=== PATIENT | female | born 1970 ===

== ENCOUNTER 2016-12-26 20:26 | Emergency (ER) | payer MEDICAID ==
[2016-12-26 20:26] VITALS: BMI 31.6
[2016-12-26 20:40] VITALS: O2SAT 100
[2016-12-26] MEDS ORDERED: Sodium Chloride 0.9% 1,000 ML IV ONE (20:54)
--- NOTE | 2016-12-26 21:09 | C.PDOC ---
History Of Present Illness 46 year old female presents to the ED with complaints of abdominal bloating for the past 4 days. Patient states she is s/p laparoscopic cholecystectomy and umbilical hernia repair on November 2016. Denies abdominal pain, nausea, vomiting, or any other complaints. Time Seen by Provider: 12/26/16 20:48 Chief Complaint (Nursing): Abdominal Pain History Per: Patient History/Exam Limitations: no limitations Onset/Duration Of Symptoms: Days Current Symptoms Are (Timing): Still Present Severity: Mild Radiation Of Pain To:: None Associated Symptoms: denies: Nausea, Vomiting Abnormal Vaginal Bleeding: No Past Medical History Reviewed: Historical Data, Nursing Documentation, Vital Signs Vital Signs: Last Vital Signs Temp 98 F 12/26/16 20:36 Pulse 77 12/26/16 20:36 Resp 20 12/26/16 20:36 BP 109/72 12/26/16 20:36 Pulse Ox 100 12/26/16 21:10 - Medical History PMH: Gastritis, Gall Bladder Disease Surgical History: Endoscopy Family History: States: Unknown Family Hx - Social History Hx Tobacco Use: No Hx Alcohol Use: No Hx Substance Use: No - Immunization History Hx Tetanus Toxoid Vaccination: No Hx Influenza Vaccination: No Hx Pneumococcal Vaccination: No Review Of Systems Except As Marked, All Systems Reviewed And Found Negative. Constitutional: Negative for: Fever, Chills Gastrointestinal: Positive for: Other (+Abdominal bloating). Negative for: Nausea, Vomiting, Abdominal Pain Physical Exam - Physical Exam Appears: Non-toxic, No Acute Distress Skin: Normal Color, Warm, Dry Head: Atraumatic, Normacephalic Eye(s): bilateral: Normal Inspection Oral Mucosa: Moist Chest: Symmetrical, No Deformity Cardiovascular: Rhythm Regular, No Murmur Respiratory: Normal Breath Sounds, No Accessory Muscle Use, No Rales, No Rhonchi , No Wheezing Gastrointestinal/Abdominal: Soft, No Tenderness, Distention (+Mild distention), No Guarding, No Rebound, Other (+Obese abdomen) Extremity: Normal ROM Neurological/Psych: Oriented x3, Normal Speech, Normal Cognition ED Course And Treatment - Laboratory Results Result Diagrams: 12/26/16 21:10 12/26/16 21:10 Lab Interpretation: Normal (ua neg.) Urine POC: Negative O2 Sat by Pulse Oximetry: 100 (Room air) Pulse Ox Interpretation: Normal - Radiology CXR: Interpreted by Me CXR Interpretation: Yes: No Acute Disease - Other Rad abd x 2 X-Ray: Interpreted by Me (+FOS) Progress Note: Obstructive series, Blood work, and Urinalysis ordered and reviewed. Patient treated with Toradol and IV fluids. Reevaluation Time: 21:49 Reassessment Condition: Improved Medical Decision Making Medical Decision Making: constipation, normal labs no FA (s/p lap karyn 1 mo ago) Disposition Doctor Will See Patient In The: Office Counseled Patient/Family Regarding: Studies Performed, Diagnosis - Disposition Disposition: HOME/ ROUTINE Disposition Time: 21:49 Condition: GOOD - Clinical Impression Clinical Impression: Abdominal bloating - Scribe Statement The provider has reviewed the documentation as recorded by the Scribe Janes Weiss. Provider Attestation: All medical record entries made by the Scribe were at my direction and personally dictated by me. I have reviewed the chart and agree that the record accurately reflects my personal performance of the history, physical exam, medical decision making, and the department course for this patient. I have also personally directed, reviewed, and agree with the discharge instructions and disposition.
[2016-12-26] MEDS ORDERED: Sodium Chloride 0.9% 1,000 ML ONE (21:10)
[2016-12-26 21:15] LABS: RBC URINE 2 /hpf (0-3); URINE BACTERIA RARE (<OCC); URINE BILIRUBIN NEGATIVE (NEGATIVE); URINE BLOOD NEGATIVE (NEGATIVE); URINE COLOR Yellow (YELLOW); URINE GLUCOSE (UA) NORMAL (Normal); URINE KETONE NEGATIVE (NEGATIVE); URINE LEUKOCYTE ESTERASE 2+ Leu/uL (Negative); URINE PROTEIN NEGATIVE (NEGATIVE); URINE UROBILINOGEN NORMAL mg/dL (0.2-1.0); WBC URINE 184 /hpf (0-5)
[2016-12-26 21:21] LABS: BASO % 0.9 % (0.0-2.0); EOS # 0.2 K/uL (0.0-0.7); EOS % 4.1 % (0.0-4.0); HEMATOCRIT 36.3 % (34.0-47.0); LYMPH # 2.7 K/uL (1.0-4.3); LYMPH % 49.2 % (20.0-40.0); MEAN CELL VOLUME 89.5 fL (81.0-99.0); MEAN CORPUSCULAR HEMOGLOBIN 30.2 pg (27.0-31.0); MEAN CORPUSCULAR HGB CONC 33.8 g/dL (33.0-37.0); MEAN PLATELET VOLUME 8.5 fL (7.2-11.7); MONO # 0.4 K/uL (0.0-0.8); MONO % 7.4 % (0.0-10.0); NRBC % 0.2 % (0.0-2.0); RED CELL DISTRIBUTION WIDTH 13.3 % (11.5-14.5); WHITE BLOOD COUNT 5.4 K/uL (4.8-10.8)
[2016-12-26 21:24] LABS: CHLORIDE 96 mmol/L (98-107); POTASSIUM 3.8 mmol/L (3.6-5.2); SODIUM 140 mmol/L (132-148)
[2016-12-26 21:26] LABS: GFR AFRICAN-AMERICAN > 60
[2016-12-26 21:27] LABS: ALB/GLOB RATIO 1.4 (1.0-2.1); ALKALINE PHOSPHATASE 50 U/L (38-126); ALT/SGPT 17 U/L (9-52); AST/SGOT 23 U/L (14-36); BILIRUBIN,TOTAL 0.2 mg/dL (0.2-1.3); BLOOD UREA NITROGEN 16 mg/dL (7-17); CALCIUM 8.8 mg/dl (8.6-10.4); CARBON DIOXIDE 28 mmol/L (22-30); GLUCOSE,RANDOM 103 mg/dL (65-105); TOTAL PROTEIN 7.1 g/dL (6.3-8.3)
[2016-12-26 21:58] VITALS: BP 119/78; PULSE 67; RESP 18; TEMP 97.8
--- NOTE | 2016-12-27 11:32 | RAD ---
PROCEDURE: Radiographs of the chest and abdomen (obstructive series) HISTORY: abd pain COMPARISON: CT abdomen and pelvis without contrast performed 02/02/16 TECHNIQUE: AP radiograph of the chest, with upright and supine radiographs of the abdomen. FINDINGS: CHEST: The cardiomediastinal silhouette appears within normal limits of size. No focal consolidation, significant pleural effusion, or definite pneumothorax identified.Please note that chest x-ray has limited sensitivity for the detection of pulmonary masses. ABDOMEN AND PELVIS: Right upper quadrant surgical clips compatible with cholecystectomy. Nonobstructive bowel gas pattern. Moderate constipation. 1.4 cm left pelvic calcification, likely calcified uterine fibroid. Pelvic calcifications, likely phleboliths. 8 mm sclerotic focus within the right sacrum, possibly bone island. Degenerative changes of the spine and pelvis. IMPRESSION: Moderate constipation. Probable calcified uterine fibroid. Cholecystectomy clips.
== END 2016-12-26 22:01 | disposition home or self-care (01) ==
LOC: C.ER 20:26
DX: R14.0 Abdominal distension (gaseous) (principal)
CPT/HCPCS: 74022; 80053; 81001; 83690; 84703; 85025; 96361; 96374; 99285; J1885; J7040

== ENCOUNTER 2016-12-27 09:15 | Emergency (ER) | payer MEDICAID ==
[2016-12-27 09:16] VITALS: BMI 31.6
[2016-12-27 09:31] VITALS: TEMP 98.2
--- NOTE | 2016-12-27 09:50 | C.PDOC ---
History Of Present Illness 46 y/o F p/w rash since last night. Patient was in this ER last night for constipation after having a lap karyn last month. She denies vomiting or fever. XR showed significant stool and no air fluid levels or free air. The patient was discharged with prescription for mag citrate which she has yet to take. She noticed various areas of erythema on her skin today which are itchy. She denies fever, dyspnea, vomiting, throat swelling. Time Seen by Provider: 12/27/16 09:42 Chief Complaint (Nursing): Abnormal Skin Integrity Past Medical History Vital Signs: Last Vital Signs Temp 98.2 F 12/27/16 09:23 Pulse 80 12/27/16 09:23 Resp 17 12/27/16 09:23 BP 96/64 L 12/27/16 09:23 Pulse Ox 99 12/27/16 09:52 - Medical History PMH: Gastritis, Gall Bladder Disease Denies: Chronic Kidney Disease Surgical History: Cholecystectomy (12/04/16), Endoscopy Family History: States: Unknown Family Hx - Social History Hx Tobacco Use: No Hx Alcohol Use: No Hx Substance Use: No - Immunization History Hx Tetanus Toxoid Vaccination: No Hx Influenza Vaccination: No Hx Pneumococcal Vaccination: No Review Of Systems Except As Marked, All Systems Reviewed And Found Negative. Constitutional: Negative for: Fever Respiratory: Negative for: Shortness of Breath Physical Exam - Physical Exam Appears: Non-toxic Skin: Rash (erythematous patches, warm and nontender and blanching to R upper back, L arm, R hip) Head: Normacephalic Oral Mucosa: Moist, No Drooling Tongue: No Swelling Lips: No Swelling Throat: No Erythema, No Exudate Neck: Normal ROM, Supple Respiratory: No Stridor, No Wheezing Gastrointestinal/Abdominal: No Guarding Pulses: Left Radial: Normal, Right Radial: Normal Neurological/Psych: Normal Speech, Normal Cognition Gait: Steady ED Course And Treatment O2 Sat by Pulse Oximetry: 99 Medical Decision Making Medical Decision Making: Will treat as allergic reaction with benadryl, prednisone, and pepcid. F/u PMD, return to ER immediately for any trouble breathing, change in voice, etc. Disposition - Disposition Disposition: HOME/ ROUTINE Disposition Time: 10:54 Condition: STABLE Prescriptions: DiphenhydrAMINE [Benadryl] 2 cap PO Q8 #25 cap Prednisone [Deltasone] 3 tab PO DAILY #12 tablet Famotidine [Pepcid] 1 tab PO BID #14 tab Instructions: Urticaria (ED) - Clinical Impression Clinical Impression: Urticaria
[2016-12-27 11:00] VITALS: BP 102/74; PULSE 78; RESP 16; O2SAT 98
== END 2016-12-27 10:59 | disposition home or self-care (01) ==
LOC: C.ER 09:15
DX: L50.9 Urticaria, unspecified (principal)

== ENCOUNTER 2017-06-25 10:16 | Inpatient (IN) | payer MEDICAID ==
[2017-06-21 09:36] VITALS: BMI 29.9
[2017-06-25] MEDS ORDERED: ceFAZolin IV 1 gm in Dextrose 1 GM/50 ML BAG IVPB ONE (12:42)
[2017-06-25] MEDS ORDERED: Bupivacaine HCl 0.25% PF (10 ml) Inj ONE (12:43)
[2017-06-25] MEDS ORDERED: Propofol 10 mg/ml Inj (20 ML) ONE (12:46)
[2017-06-25] MEDS ORDERED: Midazolam 2 MG/2 ML VIAL ONE (12:46)
[2017-06-25] MEDS ORDERED: Succinylcholine Chloride 20 mg/ml Syr (5 ml) IV ONE (13:09)
[2017-06-25] MEDS ORDERED: Oxycodone/Acetaminophen 5/325 mg Tab PO PRN ×2 (13:22→14:00)
[2017-06-25] MEDS ORDERED: Neostigmine Methylsulfate 3mg/3ml Syringe IV ONE (13:22)
[2017-06-25] MEDS ORDERED: Dextrose 5%/0.45% NS 1,000 ML IV ONE (13:58)
--- NOTE | 2017-06-25 14:41 | OP ---
PROCEDURE DATE: 06/25/2017 PREOPERATIVE DIAGNOSIS: Incisional hernia. POSTOPERATIVE DIAGNOSES: Incisional hernia with adhesions. PROCEDURE PERFORMED: Repair of incisional hernia with extensive lysis of adhesions. SURGEON: Dr. Garcia. ANESTHESIA: General. ESTIMATED BLOOD LOSS: 25 mL. POSTOPERATIVE CONDITION: Stable. INDICATIONS FOR SURGERY: This is a 46-year-old female status post LAP ELEAZAR, who has a painful incisional hernia near umbilical site, who now want to go an open repair. GROSS FINDINGS: There were extensive adhesions within the hernia sac containing both transverse colon and small bowel. These adhesions were taken down sharply. Serosal tears of the small bowel and transverse colon were repaired with silk. A primary repair was performed without mesh. DESCRIPTION OF PROCEDURE: The patient was taken to the operating room. General anesthesia was administered. The abdomen was prepped and draped. A generous transverse incision was made over the hernia sac. The hernia sac was identified, dissected free to its face and transected very carefully. The adhesions were then taken down sharply with Metzenbaum scissors and the above serosal tears were repaired with silk. A mesenteric blood vessel was also repaired. The fascia was then closed with interrupted 0 Prolene suture. There was an overlying tissue defect due to the previous hernia and for this reason, an adjacent tissue and transfer closure was utilized by widely mobilizing and using 2-0 and 3-0 Monocryl. The patient tolerated the procedure well, returned to recovery room in stable condition. Amarjit Garcia MD
[2017-06-25] MEDS: Dextrose 5%/0.45% NS 1,000 ML IV SCH (19:35)
[2017-06-25] MEDS: Enoxaparin 30 mg Syringe SC SCH (21:27)
[2017-06-25] MEDS: ceFAZolin IV 1 gm in Dextrose 1 GM/50 ML BAG IVPB SCH (21:41)
[2017-06-26] MEDS: Dextrose 5%/0.45% NS 1,000 ML IV SCH (02:30)
[2017-06-26 03:27] VITALS: O2SAT 96
[2017-06-26] MEDS: ceFAZolin IV 1 gm in Dextrose 1 GM/50 ML BAG IVPB SCH (05:59)
[2017-06-26 06:01] VITALS: TEMP 98.3
[2017-06-26 06:46] LABS: BASO % 0.4 % (0.0-2.0); EOS # 0.1 K/uL (0.0-0.7); EOS % 1.8 % (0.0-4.0); HEMATOCRIT 35.8 % (34.0-47.0); LYMPH # 1.9 K/uL (1.0-4.3); MEAN CELL VOLUME 90.9 fL (81.0-99.0); MEAN PLATELET VOLUME 8.8 fL (7.2-11.7); MONO # 0.3 K/uL (0.0-0.8); NRBC % 0.1 % (0.0-2.0); RED CELL DISTRIBUTION WIDTH 13.9 % (11.5-14.5); WHITE BLOOD COUNT 4.9 K/uL (4.8-10.8)
[2017-06-26 07:35] LABS: CHLORIDE 98 mmol/L (98-107); POTASSIUM 3.9 mmol/L (3.6-5.2); SODIUM 137 mmol/L (132-148)
[2017-06-26 07:37] LABS: GFR AFRICAN-AMERICAN > 60
[2017-06-26 07:38] LABS: BLOOD UREA NITROGEN 8 mg/dL (7-17); CALCIUM 8.1 mg/dl (8.6-10.4); CARBON DIOXIDE 27 mmol/L (22-30); GLUCOSE,RANDOM 85 mg/dL (65-105)
[2017-06-26 08:42] VITALS: BP 111/68; PULSE 65; RESP 18
[2017-06-26] MEDS ORDERED: Pneumococcal 23-Valent Vaccine IM ONE (10:00)
[2017-06-26] MEDS: Enoxaparin 30 mg Syringe SC SCH (10:58)
== END 2017-06-26 12:15 | disposition home or self-care (01) | DRG 160 ==
LOC: C.SDS 10:16 → C.9S 13:22 → C.6T 19:51
PROVIDERS: ADMIT Surgery; ATTEND Surgery
PROC: 0WQF0ZZ Repair Abdominal Wall, Open Approach (ICD-10-PCS; principal; 2017-06-25 12:00)
DX: K43.0 Incisional hernia with obstruction, without gangrene (principal)

== ENCOUNTER 2017-11-07 00:21 | Emergency (ER) | payer MEDICAID ==
[2017-11-07 00:21] VITALS: BMI 29.9
[2017-11-07 00:41] VITALS: TEMP 97.6
[2017-11-07] MEDS ORDERED: Morphine 4 MG/ML VIAL IV ONE (00:56)
--- NOTE | 2017-11-07 00:57 | C.PDOC ---
History Of Present Illness 46 year old female presents to the ED for evaluation of right-sided abdominal pain which began at around 1030 today. Patient also reports nausea and slight shortness of breath. She states her pain is localized and intermittent in nature. Patient's last meal was at 1700 today. She denies fever, chills, back pain, vomiting. Chief Complaint (Nursing): Abdominal Pain History Per: Patient History/Exam Limitations: no limitations Onset/Duration Of Symptoms: Hrs, Intermittent Episodes Current Symptoms Are (Timing): Still Present Location Of Pain/Discomfort: RUQ Quality Of Discomfort: "Pain" Associated Symptoms: Nausea. denies: Fever, Chills, Vomiting, Diarrhea, Back Pain Additional History Per: Patient Abnormal Vaginal Bleeding: No Past Medical History Reviewed: Historical Data, Nursing Documentation, Vital Signs Vital Signs: Last Vital Signs Temp 97.6 F 11/07/17 00:37 Pulse 73 11/07/17 01:53 Resp 19 11/07/17 01:53 BP 106/68 11/07/17 01:53 Pulse Ox 100 11/07/17 02:59 - Medical History PMH: Gastritis, Gall Bladder Disease Denies: Chronic Kidney Disease Surgical History: Cholecystectomy (12/04/16), Endoscopy - [facility] Procedures REPAIR ABDOMINAL WALL, OPEN APPROACH (06/25/17) Family History: States: Unknown Family Hx - Social History Hx Tobacco Use: No Hx Alcohol Use: No Hx Substance Use: No - Immunization History Hx Tetanus Toxoid Vaccination: No Hx Influenza Vaccination: No Hx Pneumococcal Vaccination: No Review Of Systems Constitutional: Negative for: Fever, Chills Respiratory: Positive for: Shortness of Breath Gastrointestinal: Positive for: Nausea, Abdominal Pain. Negative for: Vomiting , Diarrhea Musculoskeletal: Negative for: Back Pain Physical Exam - Physical Exam Appears: Non-toxic, Other (moderate distess. patient is leaned over, holding her right side ) Skin: Normal Color, Warm, Dry Head: Atraumatic, Normacephalic Eye(s): bilateral: Normal Inspection Oral Mucosa: Moist Neck: Supple Chest: Symmetrical, No Deformity, No Tenderness Cardiovascular: Rhythm Regular, No Murmur Respiratory: Normal Breath Sounds, No Rales, No Rhonchi, No Wheezing Gastrointestinal/Abdominal: Soft, Other (Gutierrez's sign ) Extremity: Normal ROM, Capillary Refill (less than 2 seconds ) Neurological/Psych: Oriented x3, Normal Speech, Normal Cognition ED Course And Treatment - Laboratory Results Result Diagrams: 11/07/17 01:40 11/07/17 01:40 ECG: Interpreted By Me, Viewed By Me ECG Rhythm: Sinus Rhythm Interpretation Of ECG: Normal Sinus Rhythm at rate 74bpm. No ectopy. No acute ST /T wave changes. Intervals are within normal limits. No prior EKG available for comparison. Rate From EC O2 Sat by Pulse Oximetry: 100 (on RA ) Pulse Ox Interpretation: Normal - CT Scan/US CT A/P Other Rad Studies (CT/US): Interpreted By Me, Read By Radiologist, Radiology Report Reviewed CT/US Interpretation: EXAM: CT Abdomen and Pelvis Without Intravenous Contrast. CLINICAL HISTORY: 46 years old, female; Pain; Abdominal pain; Patient HX: 02-02-16; Additional info: Abd pain. TECHNIQUE: Axial computed tomography images of the abdomen and pelvis without intravenous contrast. All CT. scans at this facility use one or more dose reduction techniques, viz.: automated exposure control;. ma/kV adjustment per patient size (including targeted exams where dose is matched to indication; i.e. head); or iterative reconstruction technique. 692 images are submitted. Coronal and sagittal reformatted images were created and reviewed. COMPARISON: CT - ABD PELVIS W/O PO OR IV CONT 2016-02-02 15:00. FINDINGS: Lower thorax: Mild parabronchial cuffing, which can be seen with bronchitis, reactive airway disease. or viral pneumonitis versus mild failure.There is hazy infiltration of the lung bases. Correlation to. patient's hydration status versus failure is recommended. ABDOMEN: Liver: Unremarkable. Gallbladder and bile ducts: Cholecystectomy. Pancreas: Unremarkable. No ductal dilation. Spleen: Unremarkable. No splenomegaly. Adrenals: Unremarkable. No mass. Kidneys and ureters: Unremarkable. No obstructing stones. No hydronephrosis. Stomach and bowel: Diverticulosis. Moderate to large amount of stool in the colon. No mucosal. thickening. Appendix: Normal appendix. PELVIS: Bladder: Partially distended bladder. Reproductive: Enlarged uterus with calcification. These findings are suspicious for uterine fibroids. ABDOMEN and PELVIS: Intraperitoneal space: Unremarkable. No free air. No significant fluid collection. Bones/joints: No acute fracture. No dislocation. Soft tissues: Unremarkable. Vasculature: Unremarkable. No abdominal aortic aneurysm. Lymph nodes: Unremarkable. No enlarged lymph nodes. IMPRESSION: 1. Mild parabronchial cuffing, which can be seen with bronchitis, reactive airway disease or viral. pneumonitis versus mild failure.There is hazy infiltration of the lung bases. Correlation to patient's. hydration status versus failure is recommended. 2. No acute intra- abdominal and intrapelvic abnormality is identified. Medical Decision Making Medical Decision Making: Progress: Bloodwork, urinalysis, CT /P ordered and reviewed. Morphine IV, Zofran IVP and IV Fluids administered. Disposition - Disposition Referrals: [facility] [Outside] Disposition: HOME/ ROUTINE Disposition Time: 06:22 Condition: GOOD Instructions: Acute Abdominal Pain (ED) Forms: [employer] (Singaporean) Print Language: SERBIAN - Clinical Impression Clinical Impression: Abdominal pain - Scribe Statement The provider has reviewed the documentation as recorded by the Scribe (Fe Ortez) Provider Attestation: All medical record entries made by the Scribe were at my direction and personally dictated by me. I have reviewed the chart and agree that the record accurately reflects my personal performance of the history, physical exam, medical decision making, and the department course for this patient. I have also personally directed, reviewed, and agree with the discharge instructions and disposition.
[2017-11-07] MEDS ORDERED: Sodium Chloride 0.9% 1,000 ML IV ONE (00:58)
--- NOTE | 2017-11-07 00:59 | C.PDOC ---
Chief Complaint (Nursing): Abdominal Pain Past Medical History Vital Signs: Last Vital Signs Temp 97.6 F 11/07/17 00:37 Pulse 76 11/07/17 00:37 Resp 20 11/07/17 00:37 BP 120/78 11/07/17 00:37 Pulse Ox 100 11/07/17 00:37 - Medical History PMH: Gastritis, Gall Bladder Disease Denies: Chronic Kidney Disease Surgical History: Cholecystectomy (12/04/16), Endoscopy - [facility] Procedures REPAIR ABDOMINAL WALL, OPEN APPROACH (06/25/17) Family History: States: Unknown Family Hx - Social History Hx Tobacco Use: No Hx Alcohol Use: No Hx Substance Use: No - Immunization History Hx Tetanus Toxoid Vaccination: No Hx Influenza Vaccination: No Hx Pneumococcal Vaccination: No ED Course And Treatment O2 Sat by Pulse Oximetry: 100 Disposition - Disposition
[2017-11-07] MEDS ORDERED: Morphine 4 MG/ML VIAL ONE (01:33)
[2017-11-07] MEDS ORDERED: Sodium Chloride 0.9% 1,000 ML ONE (01:34)
[2017-11-07 01:48] LABS: BASO % 0.6 % (0.0-2.0); EOS # 0.1 K/uL (0.0-0.7); EOS % 1.4 % (0.0-4.0); HEMOGLOBIN 12.6 g/dL (11.0-16.0); LYMPH # 2.9 K/uL (1.0-4.3); LYMPH % 57.9 % (20.0-40.0); MEAN CELL VOLUME 91.3 fL (81.0-99.0); MEAN CORPUSCULAR HEMOGLOBIN 30.4 pg (27.0-31.0); MEAN CORPUSCULAR HGB CONC 33.2 g/dL (33.0-37.0); MEAN PLATELET VOLUME 9.1 fL (7.2-11.7); MONO # 0.3 K/uL (0.0-0.8); NEUT # 1.7 K/uL (1.8-7.0); NEUT % 34.1 % (50.0-75.0); NRBC % 0.2 % (0.0-2.0); RBC 4.14 Mil/uL (3.80-5.20); RED CELL DISTRIBUTION WIDTH 13.6 % (11.5-14.5)
[2017-11-07 01:49] LABS: SQUAMOUS EPITHIAL 1 /hpf (0-5); URINE BACTERIA RARE (<OCC); URINE BILIRUBIN NEGATIVE (NEGATIVE); URINE BLOOD 3+ (NEGATIVE); URINE CLARITY Clear (Clear); URINE COLOR Yellow (YELLOW); URINE GLUCOSE (UA) NORMAL (Normal); URINE LEUKOCYTE ESTERASE NEG Leu/uL (Negative); URINE NITRATE NEGATIVE (NEGATIVE); URINE PROTEIN NEGATIVE (NEGATIVE); URINE UROBILINOGEN NORMAL mg/dL (0.2-1.0)
[2017-11-07 01:54] VITALS: BP 106/68; PULSE 73; RESP 19
[2017-11-07 02:00] LABS: ALB/GLOB RATIO 1.4 (1.0-2.1); ALBUMIN 4.3 g/dL (3.5-5.0); ALT/SGPT 31 U/L (9-52); AST/SGOT 43 U/L (14-36); BLOOD UREA NITROGEN 20 mg/dL (7-17); GFR AFRICAN-AMERICAN > 60; GFR NON-AFRICAN AMERICAN > 60; LIPASE 106 U/L (23-300)
--- NOTE | 2017-11-07 02:49 | CT ---
EXAM: CT Abdomen and Pelvis Without Intravenous Contrast CLINICAL HISTORY: 46 years old, female; Pain; Abdominal pain; Patient HX: 02-02-16; Additional info: Abd pain TECHNIQUE: Axial computed tomography images of the abdomen and pelvis without intravenous contrast. All CT scans at this facility use one or more dose reduction techniques, viz.: automated exposure control; ma/kV adjustment per patient size (including targeted exams where dose is matched to indication; i.e. head); or iterative reconstruction technique. 692 images are submitted. Coronal and sagittal reformatted images were created and reviewed. COMPARISON: CT - ABD PELVIS W/O PO OR IV CONT 2016-02-02 15:00 FINDINGS: Lower thorax: Mild parabronchial cuffing, which can be seen with bronchitis, reactive airway disease or viral pneumonitis versus mild failure.There is hazy infiltration of the lung bases. Correlation to patient's hydration status versus failure is recommended. ABDOMEN: Liver: Unremarkable. Gallbladder and bile ducts: Cholecystectomy. Pancreas: Unremarkable. No ductal dilation. Spleen: Unremarkable. No splenomegaly. Adrenals: Unremarkable. No mass. Kidneys and ureters: Unremarkable. No obstructing stones. No hydronephrosis. Stomach and bowel: Diverticulosis. Moderate to large amount of stool in the colon. No mucosal thickening. Appendix: Normal appendix. PELVIS: Bladder: Partially distended bladder. Reproductive: Enlarged uterus with calcification. These findings are suspicious for uterine fibroids. ABDOMEN and PELVIS: Intraperitoneal space: Unremarkable. No free air. No significant fluid collection. Bones/joints: No acute fracture. No dislocation. Soft tissues: Unremarkable. Vasculature: Unremarkable. No abdominal aortic aneurysm. Lymph nodes: Unremarkable. No enlarged lymph nodes. IMPRESSION: 1. Mild parabronchial cuffing, which can be seen with bronchitis, reactive airway disease or viral pneumonitis versus mild failure.There is hazy infiltration of the lung bases. Correlation to patient's hydration status versus failure is recommended. 2. No acute intra-abdominal and intrapelvic abnormality is identified.
[2017-11-07 02:59] VITALS: O2SAT 100
--- NOTE | 2017-11-07 09:47 | RAD ---
PROCEDURE: CHEST RADIOGRAPH, 1 VIEW HISTORY: pleuritic CP COMPARISON: Comparison made with CT scan abdomen pelvis 11/07/2017 which also image both lung bases. FINDINGS: LUNGS: Minor bibasilar atelectasis PLEURA: No pneumothorax or pleural fluid seen. CARDIOVASCULAR: Normal. OSSEOUS STRUCTURES: No significant abnormalities. VISUALIZED UPPER ABDOMEN: Normal. OTHER FINDINGS: None. IMPRESSION: Minor bibasilar atelectasis.
== END 2017-11-07 04:51 | disposition home or self-care (01) ==
LOC: C.ER 00:21
DX: R10.9 Unspecified abdominal pain (principal)
CPT/HCPCS: 71045; 74176; 80053; 81001; 83690; 84484; 85025; 85378; 96361; 96374; 96375; 99284; J2270; J2405; J7040